=== PATIENT | male | born 1960 | race Native Hawaiian/Other Pacific Islander ===

== ENCOUNTER 2019-11-16 14:36 | Emergency (ER) | payer BC ==
[~2019-11-16] VITALS: Ht 182.9 cm; Wt 81.6 kg
[2019-11-16 16:09] VITALS: BP 122/88; TEMP 98.2
== END 2019-11-16 16:10 | disposition home or self-care (01) ==
LOC: ED 14:36
DX: T63.461A Toxic effect of venom of wasps, accidental (unintentional), initial encounter (principal); S50.811A Abrasion of right forearm, initial encounter; Y92.89 Other specified places as the place of occurrence of the external cause
CPT/HCPCS: 90471; 96374; 96375; 99284; J1200; J2930